=== PATIENT | male | born 1970 | race Caucasian/White ===

== ENCOUNTER 2025-02-17 05:26 | Emergency (ER) | payer SELFPAY ==
[~2025-02-17] VITALS: Ht 177.8 cm; Wt 85.0 kg
[2025-02-17 05:33] VITALS: O2SAT 100
[2025-02-17 07:05] VITALS: BP 128/77; PULSE 39; RESP 14; TEMP 36.6; O2SAT 100
[2025-02-17] MEDS: TETRACAINE 0.5% OPHTH DROPS 4ML BOTHEYE ONE (07:12)
[2025-02-17] MEDS: FLUORESCEIN SODIUM 1MG/STRIP BOTHEYE ONE (07:14)
== END 2025-02-17 07:46 | disposition home or self-care (01) ==
LOC: ER 05:26
DX: H57.11 Ocular pain, right eye (principal); F17.200 Nicotine dependence, unspecified, uncomplicated; I10 Essential (primary) hypertension
CPT/HCPCS: 99283